=== PATIENT | male | born 1955 | race Caucasian/White ===

== ENCOUNTER → 2019-09-12 08:30 | Outpatient (CLI) | payer BC, SELFPAY ==
[2019-09-12 09:18] LABS: Basophils # 0.4 K/mm3 (0-0.2); Basophils % 4.6 % (0.1-2.0); Eosinophils # 0.3 K/mm3 (0.0-0.4); Eosinophils % 3.1 % (0.1-12.0); Hematocrit 48.5 % (42.0-52.0); Hemoglobin 14.9 g/dL (14.1-18.0); Lymphocytes # 2.8 K/mm3 (0.7-4.5); Lymphocytes % 31.8 % (10-50); Mean Corpuscular HGB Conc 30.7 g/dL (31.8-35.4); Mean Corpuscular Hemoglobin 31.2 pg (27.0-31.2); Mean Corpuscular Volume 101.5 fl (80-94); Mean Platelet Volume 11.2 fl (7.4-10.4); Monocytes # 0.5 K/mm3 (0.1-1.0); Monocytes % 6.1 % (1.7-9.3); Neutrophils # 5.2 K/mm3 (1.8-7.8); Platelet Count 273 K/mm3 (142-424); Red Blood Count 4.78 M/mm3 (4.60-6.20); Red Cell Distribution Width 19.8 % (11.5-17.5); White Blood Count 8.8 K/mm3 (4.8-10.8)
[2019-09-12 10:28] LABS: Chloride 105 mmol/L (98-107); Potassium 5.3 mmoL/L (3.5-5.1); Sodium 137 mmol/L (136-145)
[2019-09-12 10:31] LABS: Alanine Aminotransferase 23 U/L (12-78); Albumin Level 4.1 g/dl (3.5-5.0); Albumin/Globulin Ratio 1.5 (1.1-1.8); Alkaline Phosphatase 55 U/L (38-126); Anion Gap 10.3 mEq/L (5-15); Aspartate Amino Transferase 25 U/L (17-59); Bilirubin,Total 0.5 mg/dl (0.2-1.3); Blood Urea Nitrogen 22 mg/dl (9-20); Calcium 9.4 mg/dl (8.4-10.2); Carbon Dioxide 27 mmol/L (22.0-30.0); Chol/HDL Ratio 2.3 (1-3.5); Cholesterol 153 mg/dl (140-200); Estimated Glomerular Filt Rate 85 ml/min (>60); GFR (African American) 103 ML/MIN (>60); Globulin 2.8 g/dL (1.3-3.2); Glucose 111 mg/dl (74-100); HDL Cholesterol 68 mg/dl (40-60); Total Protein,Serum 6.9 g/dl (6.3-8.2); Triglycerides 78 mg/dl (30-150); VLDL Cholesterol 16 mg/dL (0-40)
[2019-09-12 10:43] LABS: Direct LDL Cholesterol 80.88 mg/dL (100-129)
[2019-09-12 11:03] LABS: Prostate Specific Ag Screen 0.5 ng/ml (0.0-4.0)
[2019-09-13 19:10] LABS: Hemoglobin A1C 6.2 % (4.0-6.0)
[2019-09-15 07:57] LABS: Vitamin B12 372 pg/mL (232-1245)
== END ==
PROVIDERS: Visit Provider Nurse Practitioner Family
DX: Z00.00 Encounter for general adult medical examination without abnormal findings (principal); I10 Essential (primary) hypertension; E78.5 Hyperlipidemia, unspecified; R73.9 Hyperglycemia, unspecified; D75.89 Other specified diseases of blood and blood-forming organs
CPT/HCPCS: 36415; 80053; 80061; 82607; 83036; 85025; G0103

== ENCOUNTER → 2020-04-03 10:15 | Outpatient (CLI) | payer MEDICARE, BC, SELFPAY ==
[2020-04-03 11:03] LABS: Basophils % 0.5 % (0.1-2.0); Eosinophils # 0.2 K/mm3 (0.0-0.4); Eosinophils % 2.6 % (0.1-12.0); Hematocrit 45.8 % (42.0-52.0); Hemoglobin 15.1 g/dL (14.1-18.0); Lymphocytes # 2.2 K/mm3 (0.7-4.5); Lymphocytes % 31.2 % (10-50); Mean Corpuscular Hemoglobin 30.6 pg (27.0-31.2); Mean Corpuscular Volume 92.9 fl (80-94); Mean Platelet Volume 7.4 fl (7.4-10.4); Monocytes # 0.5 K/mm3 (0.1-1.0); Monocytes % 7.2 % (1.7-9.3); Neutrophils # 4.2 K/mm3 (1.8-7.8); Neutrophils % 58.5 % (37.0-80.0); Platelet Count 324 K/mm3 (142-424); Red Blood Count 4.93 M/mm3 (4.60-6.20); Red Cell Distribution Width 13.2 % (11.5-17.5); White Blood Count 7.1 K/mm3 (4.8-10.8)
[2020-04-03 11:48] LABS: Anion Gap 12.9 mEq/L (5-15); Blood Urea Nitrogen 26 mg/dl (9-20); Calcium 9.6 mg/dl (8.4-10.2); Carbon Dioxide 27 mmol/L (22.0-30.0); Chloride 106 mmol/L (98-107); Estimated Glomerular Filt Rate 97 ml/min (>60); GFR (African American) 117 ML/MIN (>60); Glucose 112 mg/dl (74-100); Potassium 4.9 mmoL/L (3.5-5.1); Sodium 141 mmol/L (136-145)
[2020-04-03 12:38] LABS: Vitamin B12 982 pg/mL (239-931)
== END ==
PROVIDERS: Visit Provider Nurse Practitioner Family
DX: R73.03 Prediabetes (principal); I10 Essential (primary) hypertension; D75.89 Other specified diseases of blood and blood-forming organs
CPT/HCPCS: 36415; 80048; 82607; 83036; 85025

== ENCOUNTER → 2020-09-26 08:49 | Outpatient (CLI) | payer MEDICARE, BC, SELFPAY ==
[2020-09-26 10:09] LABS: Basophils # 0.1 K/mm3 (0-0.2); Basophils % 0.7 % (0.1-2.0); Eosinophils # 0.3 K/mm3 (0.0-0.4); Eosinophils % 4.4 % (0.1-12.0); Hematocrit 41.2 % (42.0-52.0); Hemoglobin 13.8 g/dL (14.1-18.0); Lymphocytes # 2.3 K/mm3 (0.7-4.5); Mean Corpuscular HGB Conc 33.6 g/dL (31.8-35.4); Mean Corpuscular Hemoglobin 30.4 pg (27.0-31.2); Mean Corpuscular Volume 90.4 fl (80-94); Mean Platelet Volume 7.5 fl (7.4-10.4); Monocytes # 0.5 K/mm3 (0.1-1.0); Monocytes % 6.5 % (1.7-9.3); Neutrophils # 4.1 K/mm3 (1.8-7.8); Neutrophils % 56.4 % (37.0-80.0); Platelet Count 264 K/mm3 (142-424); Red Blood Count 4.55 M/mm3 (4.60-6.20); Red Cell Distribution Width 13.3 % (11.5-17.5); White Blood Count 7.2 K/mm3 (4.8-10.8)
[2020-09-26 10:22] LABS: Hemoglobin A1C 6.1 % (4.0-6.0)
[2020-09-26 10:31] LABS: Alanine Aminotransferase 35 U/L (12-78); Albumin Level 4.2 g/dl (3.5-5.0); Albumin/Globulin Ratio 1.7 (1.1-1.8); Alkaline Phosphatase 67 U/L (38-126); Anion Gap 12.1 mEq/L (5-15); Aspartate Amino Transferase 28 U/L (17-59); Bilirubin,Total 0.5 mg/dl (0.2-1.3); Blood Urea Nitrogen 30 mg/dl (9-20); Calcium 9.2 mg/dl (8.4-10.2); Carbon Dioxide 29 mmol/L (22.0-30.0); Chloride 106 mmol/L (98-107); Chol/HDL Ratio 2.6 (1-3.5); Cholesterol 159 mg/dl (140-200); Estimated Glomerular Filt Rate 85 ml/min (>60); GFR (African American) 102 ML/MIN (>60); Globulin 2.5 g/dL (1.3-3.2); Glucose 112 mg/dl (74-100); HDL Cholesterol 62 mg/dl (40-60); Potassium 5.1 mmoL/L (3.5-5.1); Sodium 142 mmol/L (136-145); Total Protein,Serum 6.7 g/dl (6.3-8.2); Triglycerides 68 mg/dl (30-150); VLDL Cholesterol 14 mg/dL (0-40)
[2020-09-26 10:42] LABS: Direct LDL Cholesterol 78.31 mg/dL (100-129)
[2020-09-26 11:00] LABS: Prostate Specific Ag Screen 0.3 ng/ml (0.0-4.0)
[2020-09-26 11:19] LABS: Vitamin B12 501 pg/mL (239-931)
== END ==
PROVIDERS: Visit Provider Nurse Practitioner Family
DX: I10 Essential (primary) hypertension (principal); E78.5 Hyperlipidemia, unspecified; R73.03 Prediabetes; E53.8 Deficiency of other specified B group vitamins; R35.1 Nocturia; Z12.5 Encounter for screening for malignant neoplasm of prostate
CPT/HCPCS: 36415; 80053; 80061; 82607; 83036; 85025; G0103

== ENCOUNTER → 2021-10-22 08:22 | Outpatient (CLI) | payer MEDICARE, BC, SELFPAY ==
[2021-10-22 09:00] LABS: Basophils # 0.1 K/mm3 (0-0.2); Basophils % 0.7 % (0.1-2.0); Eosinophils # 0.2 K/mm3 (0.0-0.4); Eosinophils % 2.1 % (0.1-12.0); Hematocrit 45.3 % (42.0-52.0); Hemoglobin 14.2 g/dL (14.1-18.0); Lymphocytes # 2.4 K/mm3 (0.7-4.5); Lymphocytes % 31.1 % (10-50); Mean Corpuscular HGB Conc 31.2 g/dL (31.8-35.4); Mean Corpuscular Hemoglobin 30.5 pg (27.0-31.2); Mean Corpuscular Volume 97.7 fl (80-94); Mean Platelet Volume 7.9 fl (7.4-10.4); Monocytes # 0.5 K/mm3 (0.1-1.0); Monocytes % 6.1 % (1.7-9.3); Neutrophils # 4.7 K/mm3 (1.8-7.8); Platelet Count 326 K/mm3 (142-424); Red Blood Count 4.64 M/mm3 (4.60-6.20); Red Cell Distribution Width 12.6 % (11.5-17.5); White Blood Count 7.8 K/mm3 (4.8-10.8)
[2021-10-22 09:21] LABS: Chloride 105 mmol/L (98-107); Potassium 4.6 mmoL/L (3.5-5.1); Sodium 139 mmol/L (136-145)
[2021-10-22 09:23] LABS: Alanine Aminotransferase 27 U/L (12-78); Aspartate Amino Transferase 27 U/L (17-59); Blood Urea Nitrogen 23 mg/dl (9-20); Estimated Glomerular Filt Rate 96 ml/min (>60); GFR (African American) 117 ML/MIN (>60)
[2021-10-22 09:24] LABS: Albumin Level 4.2 g/dl (3.5-5.0); Albumin/Globulin Ratio 1.5 (1.1-1.8); Alkaline Phosphatase 82 U/L (38-126); Anion Gap 8.6 mEq/L (5-15); Bilirubin,Total 0.6 mg/dl (0.2-1.3); Calcium 9.4 mg/dl (8.4-10.2); Carbon Dioxide 30 mmol/L (22.0-30.0); Chol/HDL Ratio 2.5 (1-3.5); Cholesterol 150 mg/dl (140-200); Globulin 2.8 g/dL (1.3-3.2); Glucose 120 mg/dl (74-100); HDL Cholesterol 59 mg/dl (40-60); Triglycerides 112 mg/dl (30-150); VLDL Cholesterol 22 mg/dL (0-40)
[2021-10-22 10:27] LABS: Prostate Specific Ag Screen 0.5 ng/ml (0.0-4.0)
[2021-10-23 08:22] LABS: Direct LDL Cholesterol 74 mg/dL (100-129)
== END ==
PROVIDERS: PCP Internal Medicine Adolescent Medicine; Visit Provider Nurse Practitioner Family
DX: I10 Essential (primary) hypertension (principal); E78.5 Hyperlipidemia, unspecified; R73.03 Prediabetes; E53.8 Deficiency of other specified B group vitamins; R35.1 Nocturia; Z12.5 Encounter for screening for malignant neoplasm of prostate
CPT/HCPCS: 36415; 80053; 80061; 83036; 85025; G0103

== ENCOUNTER → 2022-03-02 13:15 | Outpatient (POV) | payer MEDICARE, BC, SELFPAY | PROVIDERS: Visit Provider Dermatology | DX: Z00.00 Encounter for general adult medical examination without abnormal findings (principal) ==

== ENCOUNTER 2022-03-18 10:30 | Outpatient (RCR) | payer MEDICARE, BC, SELFPAY | END 2022-03-18 10:35 | disposition home or self-care (01) | LOC: PT 10:30 | PROVIDERS: PCP Internal Medicine Adolescent Medicine; Visit Provider Orthopaedic Surgery | DX: M25.561 Pain in right knee (principal); Z96.651 Presence of right artificial knee joint | CPT/HCPCS: 97010; 97014; 97110; 97163; 97164; G0283 ==

== ENCOUNTER 2022-05-05 08:00 | Outpatient (RCR) | payer MEDICARE, BC, SELFPAY | END 2022-05-05 08:05 | disposition home or self-care (01) | LOC: PT 08:00 | PROVIDERS: PCP Internal Medicine Adolescent Medicine; Visit Provider Orthopaedic Surgery | DX: M25.562 Pain in left knee (principal); Z96.652 Presence of left artificial knee joint | CPT/HCPCS: 97010; 97014; 97016; 97110; 97163; 97164; 97530; G0283 ==